=== PATIENT | male | born 1965 | race Caucasian/White ===

== ENCOUNTER 2016-11-27 05:52 | Emergency (ER) | payer SELFPAY ==
[2016-11-27] MEDS ORDERED: HYDROXYZINE HCL 10 MG TABLET PO ONE (07:36)
[2016-11-27] MEDS ORDERED: METHYLPREDNISOLONE INJ 125 MG/2 ML SDV IV ONE (07:36)
[2016-11-27] MEDS ORDERED: METHYLPREDNISOLONE INJ 125 MG/2 ML SDV IM ONE (07:44)
--- NOTE | 2016-11-27 07:44 | ER Document Report ---
ED Allergic Reaction - General Chief Complaint: Allergy Symptoms Stated Complaint: POSSIBLE HIVES AND RIGHT TESTICLE PAIN Time Seen by Provider: 11/27/16 07:04 Mode of Arrival: Ambulatory Information source: Patient Notes: Is a 51-year-old male who presents to the ER today for hives all over his body 1 week. Patient states that this is happened before and that he never figured out what he was allergic to. He states that whenever this does happen he has to have a steroid shot. He denies any new use of soaps, any new foods are coming into contact with anything new that he knows of recently. He states that the worst part of the hives are on his back, admits that it is very itchy. He has been taking Benadryl every 4 hours which has been helping a little he states. He also complains of intermittent right testicular pain 1 week. States that this is also happened before, was diagnosed with hernia, never saw anyone for it. He admits that he sometimes has a "bulging" in the right groin that reduces over time. He denies any penile discharge, dysuria. TRAVEL OUTSIDE OF THE [place] IN LAST 30 DAYS: No Past Medical History - General Information source: Patient - Social History Smoking Status: Unknown if Ever Smoked Frequency of alcohol use: None Drug Abuse: None Family History: Reviewed & Not Pertinent Patient has suicidal ideation: No Patient has homicidal ideation: No Renal/ Medical History: Denies: Hx Peritoneal Dialysis Review of Systems - Review of Systems Constitutional: No symptoms reported EENT: No symptoms reported Cardiovascular: No symptoms reported Respiratory: No symptoms reported Gastrointestinal: No symptoms reported Genitourinary: No symptoms reported Male Genitourinary: See HPI Musculoskeletal: No symptoms reported Skin: See HPI Hematologic/Lymphatic: No symptoms reported Neurological/Psychological: No symptoms reported Physical Exam - Vital signs Vitals: Temp Pulse Resp BP Pulse Ox 97.5 F 76 16 130/85 H 97 11/27/16 06:00 11/27/16 06:00 11/27/16 06:00 11/27/16 06:00 11/27/16 06:00 - Notes Notes: PHYSICAL EXAMINATION: GENERAL: Well-appearing and in no acute distress. HEAD: Atraumatic, normocephalic. EYES: Pupils equal round and reactive to light, extraocular movements intact, sclera anicteric, conjunctiva are normal. ENT: ear canals without erythema or foreign body, TMs pearly rivera with good bony landmarks, nares patent, oropharynx clear without exudates. Moist mucous membranes. NECK: Normal range of motion, supple without lymphadenopathy LUNGS: CTAB and equal. No wheezes rales or rhonchi. HEART: Regular rate and rhythm without murmurs ABDOMEN: Soft, no tenderness. No guarding, no rebound BACK: no vertebral tenderness, normal ROM GI/: right indiriect inguinal appreciated on testicular exam, reducible, mildly tender, no CVA tenderness EXTREMITIES: Normal range of motion, no pitting edema. No cyanosis. NEUROLOGICAL: Cranial nerves grossly intact. Normal sensory/motor exams. PSYCH: Normal mood, normal affect. SKIN: Warm, Dry, normal turgor, urticaria over back, groin and medial thighs nurse witnessed testicular exam, Abby Tolliver. Course - Re-evaluation Re-evalutation: 11/27/16 10:29 Given Solu-Medrol injection and hydroxyzine here, states he does not want prednisone. Urinalysis on gonorrhea and chlamydia are not negative today. - Vital Signs Vital signs: Temp Pulse Resp BP Pulse Ox 98.1 F 65 16 136/92 H 97 11/27/16 06:24 11/27/16 08:56 11/27/16 08:56 11/27/16 08:56 11/27/16 06:24 Discharge - Discharge Clinical Impression: Hives, Right inguinal hernia Condition: Stable Disposition: HOME, SELF-CARE Additional Instructions: Return immediately for any new or worsening symptoms. Follow up with primary care provider, call tomorrow to make followup appointment. Prescriptions: Hydroxyzine HCl 10 mg PO Q8 PRN #15 tablet PRN Reason: Referrals: CRISTIANO NORWOOD MD [ACTIVE STAFF] - Follow up as needed
[2016-11-27 08:32] LABS: APPEARANCE,URINE CLEAR; BILIRUBIN,URINE NEGATIVE (NEGATIVE); GLUCOSE, URINE NEGATIVE (NEGATIVE); KETONES,URINE NEGATIVE (NEGATIVE); LEUKOCYTE ESTERASE,URINE NEGATIVE (NEGATIVE); NITRITE,URINE NEGATIVE (NEGATIVE); PROTEIN,URINE NEGATIVE (NEGATIVE); UROBILINOGEN,URINE NEGATIVE mg/dL (<2.0)
[2016-11-27 08:57] VITALS: BP 136/92
[2016-11-27 10:01] LABS: CHLAM PCR NOT DETECTED (NOT DETECT)
== END 2016-11-27 08:57 | disposition home or self-care (01) ==
LOC: ER 05:52
DX: L50.0 Allergic urticaria (principal); K40.90 Unilateral inguinal hernia, without obstruction or gangrene, not specified as recurrent
CPT/HCPCS: 99283; 96372; 81001; 87491; 87591; J2930